=== PATIENT | male | born 1950 | race Caucasian/White ===

== ENCOUNTER 2020-09-22 11:03 | Emergency (ER) | payer MEDICARE ==
[~2020-09-22] VITALS: Ht 167.6 cm; Wt 95.3 kg
[~2020-09-22 11:03] MED LIST: FINA5TAB11 PO; GLIP5TAB13 PO; METF-440 PO; METO25TA6 PO; OLME40TA12 PO; ROSU20TA2 PO
[2020-09-22] MEDS ORDERED: LIDOCAINE HCL 1% 20 ML VIAL IJ ONE (12:00)
[2020-09-22] MEDS ORDERED: TDAP DIPH,PERTUSS,TET VAC/PF 0.5 ML DISP.SYRIN IM ONE ×2 (12:00→12:18)
[2020-09-22] MEDS ORDERED: LIDOCAINE HCL 1% 20 ML VIAL ONE (12:18)
[2020-09-22] MEDS ORDERED: AMOX-430 PO (14:09)
[2020-09-22] MEDS ORDERED: NEOMY/BACITRA/POLYMYXIN B OINT UD PACKET TP ONE ×2 (14:09→14:15)
[2020-09-22] MEDS ORDERED: AMOXICILLIN-CLAVUL 875-125MG TABLET PO ONE (14:15)
[2020-09-22] MEDS ORDERED: AMOXICILLIN-CLAVUL 875-125MG TABLET ONE (14:19)
--- NOTE | 2020-09-22 14:24 | NUR ---
Patient discharged to home in stable condition. Written and verbal after care instructions given. Patient verbalizes understanding of instructions. Stressed follow up or return to ER for worsening s/s.
== END 2020-09-22 14:24 | disposition home or self-care (01) ==
LOC: ER 11:03
DX: S01.312A Laceration without foreign body of left ear, initial encounter (principal); W01.0XXA Fall on same level from slipping, tripping and stumbling without subsequent striking against object, initial encounter; Y93.9 Activity, unspecified; Y92.017 Garden or yard in single-family (private) house as the place of occurrence of the external cause; Y99.8 Other external cause status; E11.9 Type 2 diabetes mellitus without complications; I10 Essential (primary) hypertension; I25.10 Atherosclerotic heart disease of native coronary artery without angina pectoris; Z95.5 Presence of coronary angioplasty implant and graft; E78.00 Pure hypercholesterolemia, unspecified; N40.0 Benign prostatic hyperplasia without lower urinary tract symptoms; Z79.84 Long term (current) use of oral hypoglycemic drugs; Z79.899 Other long term (current) drug therapy
CPT/HCPCS: 12013; 90471; 90715; 99284; J3490; A4217; A4663

== ENCOUNTER 2020-09-27 13:42 | Emergency (ER) | payer MEDICARE ==
[~2020-09-27] VITALS: Ht 167.6 cm; Wt 95.3 kg
[~2020-09-27 13:42] MED LIST changes: +AMOX-430 PO; -GLIP5TAB13 PO; -OLME40TA12 PO
--- NOTE | 2020-09-27 14:10 | NUR ---
at bedside for assessment
[2020-09-27] MEDS ORDERED: NEOMY/BACITRA/POLYMYXIN B OINT UD PACKET TP ONE ×2 (14:29→14:30)
[2020-09-27 14:34] VITALS: BP 127/68
== END 2020-09-27 14:34 | disposition home or self-care (01) ==
LOC: ER 13:42
DX: S01.312D Laceration without foreign body of left ear, subsequent encounter (principal); X58.XXXD Exposure to other specified factors, subsequent encounter; Z95.5 Presence of coronary angioplasty implant and graft; E11.9 Type 2 diabetes mellitus without complications; Z79.84 Long term (current) use of oral hypoglycemic drugs; Z79.899 Other long term (current) drug therapy; E78.00 Pure hypercholesterolemia, unspecified
CPT/HCPCS: A4663